=== PATIENT | male | born 1950 | race Caucasian/White ===

== ENCOUNTER 2018-04-15 16:05 | Inpatient (IN) | payer OTHER, MEDICAID ==
[~2018-04-15] VITALS: Ht 172.7 cm; Wt 80.7 kg
[2018-04-15] MEDS ORDERED: SODIUM CHLORIDE 0.9% 1,000 ML IV ONE (16:33)
[2018-04-15 17:21] LABS: BASOPHILS % 0.6 % (0.0-2.0); EOSINOPHILS % 1.9 % (0.0-5.0); HEMATOCRIT. 41.9 % (42.0-52.0); HEMOGLOBIN. 13.7 g/dL (14.0-18.0); LYMPHOCYTES % 22.2 % (20.0-50.0); MEAN CORPUSCULAR HEMOGLOBIN 28.5 pg (28.0-32.0); MEAN CORPUSCULAR VOLUME 87.5 fL (80.0-94.0); MEAN PLATELET VOLUME 9.6 fl (7.4-10.4); MONOCYTES % 7.1 % (2.0-8.0); NEUTROPHILS % 68.2 % (40.0-76.0); PLATELET 145 x1000/uL (130-400); RED BLOOD CELL COUNT 4.79 mill/uL (4.7-6.1); RED CELL DISTRIBUTION WIDTH 14.9 % (11.6-14.6)
[2018-04-15 17:28] LABS: INR 1.1; PROTHROMBIN TIME 11.1 sec (9.1-11.1)
[2018-04-15 17:29] LABS: CHLORIDE 106 mEq/L (98-107)
[2018-04-15 17:33] LABS: ETHANOL BLOOD < 10 mg/dL
[2018-04-15 17:37] LABS: CREATINE KINASE 71 IU/L (39-308)
[2018-04-15 18:22] LABS: CLARITY URINE CLEAR (CLEAR); COLOR URINE YELLOW (YELLOW); KETONES URINE TRACE (NEGATIVE); LEUKOCYTE ESTERASE URINE TRACE (NEGATIVE); NITRITE URINE NEGATIVE (NEGATIVE); OCCULT BLOOD URINE NEGATIVE (NEGATIVE); PH URINE 5.5 (4.5-8.0); PROTEIN URINE NEGATIVE (NEGATIVE); SPECIFIC GRAVITY URINE 1.031 (1.005-1.030); UROBILINOGEN URINE 0.2 E.U./dL (0.2-1.0)
[2018-04-15 18:32] LABS: *BARBITURATES SCREEN URINE NEGATIVE (NEGATIVE); *BENZODIAZEPINES SCREEN URINE NEGATIVE (NEGATIVE)
[2018-04-15 18:33] LABS: *COCAINE SCREEN URINE NEGATIVE (NEGATIVE); CANNABINOID URINE SCREEN NEGATIVE (NEGATIVE); METHADONE URINE SCREEN NEGATIVE (NEGATIVE); OPIATES URINE SCREEN NEGATIVE (NEGATIVE); PHENCYCLIDINE URINE SCREEN NEGATIVE (NEGATIVE)
[2018-04-15 18:34] LABS: *AMPHETAMINES SCREEN URINE NEGATIVE (NEGATIVE)
[2018-04-15] MEDS ORDERED: ASPIRIN 81MG TABLET PO ONE (18:45)
[2018-04-15 21:59] VITALS: BP 130/87
[2018-04-15 22:00] VITALS: BP 130/87
[2018-04-15] MEDS ORDERED: METF-816 MT (23:30)
[2018-04-15] MEDS ORDERED: ONDANSETRON HCL 4MG/2ML INJ IV PRN (23:30)
[2018-04-15] MEDS ORDERED: DEXTROSE 50% WATER 50ML SYRINGE IV PRN (23:30)
[2018-04-16] VITALS: BP 143/83
[2018-04-16] MEDS: ACETAMINOPHEN 325MG TABLET PO PRN ×2 (00:07→06:51)
[2018-04-16 04:00] VITALS: BP 125/71
[2018-04-16] MEDS: BLOOD SUGAR DIAGNOSTIC STRIP TEST SCH ×4 (07:01→20:37)
[2018-04-16] MEDS: INSULIN LISPRO 100 UNITS/ML SUBCUT SCH ×4 (07:01→20:37)
[2018-04-16 07:15] LABS: BASOPHILS % 0.7 % (0.0-2.0); HEMATOCRIT. 41.3 % (42.0-52.0); HEMOGLOBIN. 13.7 g/dL (14.0-18.0); MEAN CORPUSCULAR HEMOGLOBIN 29.3 pg (28.0-32.0); MEAN CORPUSCULAR VOLUME 88.2 fL (80.0-94.0); MEAN PLATELET VOLUME 9.8 fl (7.4-10.4); MONOCYTES % 8.4 % (2.0-8.0); NEUTROPHILS % 54.9 % (40.0-76.0); PLATELET 126 x1000/uL (130-400); RED BLOOD CELL COUNT 4.69 mill/uL (4.7-6.1); RED CELL DISTRIBUTION WIDTH 14.4 % (11.6-14.6)
[2018-04-16 08:00] VITALS: BP 121/79
[2018-04-16 08:01] LABS: CHLORIDE 105 mEq/L (98-107)
[2018-04-16 08:14] LABS: LDL CHOLESTEROL 154 mg/dL (5-100)
[2018-04-16 08:16] LABS: HDL CHOLESTEROL 46 mg/dL (40-59)
[2018-04-16] MEDS ORDERED: ASPIRIN 325MG EC TABLET PO SCH (09:00)
[2018-04-16] MEDS: BENAZEPRIL 10MG TABLET PO SCH (09:13)
[2018-04-16] MEDS: METFORMIN HCL 500MG TABLET PO SCH ×2 (09:13→18:05)
[2018-04-16] MEDS: ENOXAPARIN 40MG/0.4ML SYR SUBCUT SCH (09:17)
[2018-04-16] MEDS ORDERED: HYDROCODONE/ACETAMINOPHEN 5/325MG TABLET PO PRN ×2 (11:15→11:30)
[2018-04-16] MEDS ORDERED: KETOROLAC 15MG/ML VIAL IV PRN (11:45)
[2018-04-16 12:25] VITALS: BP 117/73
[2018-04-16 16:27] VITALS: BP 118/73
[2018-04-16] MEDS: LACTULOSE 20G/30ML UDC PO SCH ×2 (18:05→20:37)
[2018-04-16] MEDS: DOCUSATE SODIUM 100MG CAPSULE PO SCH (18:05)
[2018-04-16 19:37] LABS: T4 FREE 1.06 ng/dL (0.76-1.46)
[2018-04-16 20:00] VITALS: BP 113/74
[2018-04-16 20:20] LABS: VITAMIN B12 SERUM 890 pg/mL (211-911)
[2018-04-16 20:29] LABS: FOLIC ACID (FOLATE) SERUM > 20.00 ng/mL (>5.38)
[2018-04-16] MEDS ORDERED: POLYETHYLENE GLYCOL 3350 (17GM) 1 DOSE PACK PO SCH (21:00)
[2018-04-16] MEDS ORDERED: ATORVASTATIN CALCIUM 40MG TABLET PO SCH (21:00)
[2018-04-17] VITALS: BP 118/59
[2018-04-17 04:00] VITALS: BP 121/56
[2018-04-17] MEDS: BLOOD SUGAR DIAGNOSTIC STRIP TEST SCH ×3 (06:51→17:11)
[2018-04-17] MEDS: INSULIN LISPRO 100 UNITS/ML SUBCUT SCH ×3 (06:51→17:11)
[2018-04-17 08:00] VITALS: BP 122/79
[2018-04-17] MEDS ORDERED: CLOPIDOGREL 75MG TABLET PO SCH (09:00)
[2018-04-17] MEDS: METFORMIN HCL 500MG TABLET PO SCH ×2 (09:19→17:11)
[2018-04-17] MEDS: BENAZEPRIL 10MG TABLET PO SCH (09:19)
[2018-04-17] MEDS: LACTULOSE 20G/30ML UDC PO SCH (09:19)
[2018-04-17] MEDS: ENOXAPARIN 40MG/0.4ML SYR SUBCUT SCH (09:19)
[2018-04-17] MEDS: DOCUSATE SODIUM 100MG CAPSULE PO SCH ×2 (09:20→17:11)
[2018-04-17 12:00] VITALS: BP 121/67
[2018-04-17 16:00] VITALS: BP 117/73
[2018-04-17] MEDS ORDERED: EZETIMIBE 10MG TABLET PO SCH (16:00)
[2018-04-17 17:57] VITALS: BP 117/73
[2018-04-17] MEDS ORDERED: METOPROLOL TARTRATE 25MG TABLET PO SCH (21:00)
[2018-04-17] MEDS ORDERED: NIACIN 500MG TABLET CR PO SCH (21:00)
[2018-04-18] MEDS ORDERED: BENAZEPRIL 10MG TABLET PO SCH (09:00)
== END 2018-04-17 19:33 | disposition home health service (06) | DRG 69 ==
LOC: ER 16:05 → 5WST 19:05 → EDBEDREQ 19:08 → EDBEDREQTM 19:08 → ENRESERV 20:40
PROVIDERS: ADMIT Internal Medicine; ATTEND Internal Medicine
DX: G45.9 Transient cerebral ischemic attack, unspecified (principal); E11.9 Type 2 diabetes mellitus without complications; D64.9 Anemia, unspecified; I35.0 Nonrheumatic aortic (valve) stenosis; J45.909 Unspecified asthma, uncomplicated; R13.10 Dysphagia, unspecified; E78.00 Pure hypercholesterolemia, unspecified; E78.5 Hyperlipidemia, unspecified; H53.462 Homonymous bilateral field defects, left side; S46.001A Unspecified injury of muscle(s) and tendon(s) of the rotator cuff of right shoulder, initial encounter; X58.XXXA Exposure to other specified factors, initial encounter; H54.7 Unspecified visual loss; I10 Essential (primary) hypertension; Z86.73 Personal history of transient ischemic attack (TIA), and cerebral infarction without residual deficits; Y93.89 Activity, other specified; Z88.8 Allergy status to other drugs, medicaments and biological substances; Y92.89 Other specified places as the place of occurrence of the external cause; Y99.8 Other external cause status
CPT/HCPCS: 36415; 70544; 70551; 71045; 72141; 73221; 80048; 80061; 80305; 82550; 82607; 82746; 82962; 83036; 83721; 83735; 83880; 84439; 84443; 84481; 84484; 92610; 93005; 93306; 93880; 96360; 96361; 97110; 97116; 97162; 97166; 97535; 99291; G0482; J1650; J1885; J7030